=== PATIENT | female | born 2000 | race Two or more races ===

== ENCOUNTER 2022-01-28 13:46 | Emergency (ER) | payer MEDICAID, OTHER ==
[~2022-01-28] VITALS: Ht 154.9 cm; Wt 54.4 kg
[2022-01-28 14:34] LABS: Urine Bacteria NONE SEEN /hpf (None Seen); Urine Blood Negative /uL (Negative); Urine Specific Gravity 1.027 (1.001-1.035); Urine WBC 7 /hpf (0 - 5)
[2022-01-28 15:02] LABS: Basophils # (auto) 0 10 ^3/uL (0-0.2); Basophils % (auto) 0.5 % (0.0-2.0); Eosinophils # (auto) 0 10 ^3/uL (0-0.8); Eosinophils % (auto) 0.9 % (0.0-7.0); Hemoglobin 13.2 g/dL (12.2-16.2); Lymphocytes % (auto) 35.5 % (10.0-50.0); Mean Corpuscular Hgb Conc. 33.8 g/dL (32.0-36.0); Mean Corpuscular Volume 91.5 fL (80.0-100.0); Monocytes # (auto) 0.4 10 ^3/uL (0-1.3); Monocytes % (auto) 6.5 % (0.0-12.0); Neutrophils # (auto) 3.2 10 ^3/uL (1.6-8.6); Neutrophils % (auto) 56.6 % (37.0-80.0); Nucleated Red Blood Cells % 0.1 %; Red Blood Cells 4.26 10^6/uL (4.0-5.20); Red Cell Distribution Width 13.8 % (11.8-14.3); White Blood Cell 5.6 10^3/uL (4.4-10.8)
[2022-01-28 15:18] LABS: INR 0.97 (0.9-1.15); Partial Thromboplastin Time 27.9 sec (23.6-33.0)
[2022-01-28 15:25] LABS: Albumin 4.2 g/dL (3.4-5.0); BUN/Creatinine Ratio 19.2; Potassium 3.9 mmol/L (3.5-5.1)
[2022-01-28 15:53] LABS: Bilirubin, Total 0.2 mg/dL (0.2-1.0); Total Protein 8.3 g/dL (6.4-8.2)
[2022-01-28 19:07] VITALS: BP 127/82
== END 2022-01-28 19:13 | disposition home or self-care (01) ==
LOC: ER 13:59
DX: F41.8 Other specified anxiety disorders (principal); R22.42 Localized swelling, mass and lump, left lower limb
CPT/HCPCS: 36415; 71046; 80053; 81001; 81025; 84484; 85025; 85610; 85730; 93005; 93971